=== PATIENT | female | born 1945 | race Hispanic/Latino ===

== ENCOUNTER 2018-08-22 06:36 | Outpatient (CLI) | payer MEDICARE, OTHER | END 2018-08-22 06:37 | disposition home or self-care (01) | LOC: CARDIO 06:36 ==

== ENCOUNTER 2018-08-26 07:18 | Outpatient (CLI) | payer MEDICARE, OTHER | END 2018-08-26 07:19 | disposition home or self-care (01) | LOC: LAB 07:18 ==